=== PATIENT | male | born 1955 | race African-American/Black ===

== ENCOUNTER 2016-12-09 19:38 | Emergency (ER) | payer OTHER ==
[2016-12-09] MEDS ORDERED: IBUPROFEN 400 MG TABLET (FP) PO ONE ×2 (20:08→20:13)
[2016-12-09 20:12] VITALS: BP 127/91; PULSE 68; TEMP 97.7; BMI 29.0
--- NOTE | 2016-12-09 20:12 | PDOC ---
History of Present Illness - General History Source: Patient Exam Limitations: No Limitations - History of Present Illness Initial Comments: The patient is a 61 yo M with a PMHx significant for HTN, DM, resolved prostate CA who presents s/p mechanical fall tuesday at work. The patient states he fell backwards on while walking stairs and fell on his shoulders. The patient states he cant raise his arm above 90 degrees. The patient notes the pain is worsened by elevating his arm. The patient also endorses numbness in his R forearm. The patient denies head trauma and LOC. The patient denies pain elsewhere. The patient notes a prior hx of chronic rotator cuff injuries. The patient states he took ibuprofen for the pain with mild relief. <Kaykay Morelos - Last Filed: 12/09/16 20:35> - General History Source: Patient, Old Records Exam Limitations: No Limitations <Kirsten Gonzalez - Last Filed: 12/09/16 20:58> - General Chief Complaint: Injury Stated Complaint: RT SHOULDER PAIN Time Seen by Provider: 12/09/16 19:41 Past History <Kaykay Morelos - Last Filed: 12/09/16 20:35> - Past Medical History Cancer: Yes (PROSTATE) Diabetes: Yes HTN: Yes - Psycho/Social/Smoking Cessation Hx Anxiety: No Suicidal Ideation: No Smoking History: Current some day smoker Have you smoked in the past 12 months: Yes Number of Cigarettes Smoked Daily: 3 Information on smoking cessation initiated: Yes 'Breaking Loose' booklet given: 12/09/16 Hx Alcohol Use: No <Kirsten Gonzalez - Last Filed: 12/09/16 20:58> - Past Medical History Allergies/Adverse Reactions: Allergies Allergy/AdvReac Type Severity Reaction Status Date / Time No Known Allergies Allergy Verified 12/09/16 19:38 Home Medications: Ambulatory Orders Amlodipine Besylate 5 mg PO DAILY 12/09/16 Aspirin [Aspirin EC] 81 mg PO DAILY 12/09/16 Ibuprofen 400 mg PO ONCE 12/09/16 Insulin Glargine,Hum.rec.anlog [Lantus (nf)] 30 units SQ ASDIR 12/09/16 Metformin HCl [Metformin HCl ER] 1,000 mg PO BID 12/09/16 Review of Systems - Review of Systems Able to Perform ROS?: Yes Comments:: CONSTITUTIONAL: Absent: fever, no chills, no fatigue EYES: Absent: visual changes ENT: Absent: ear pain, no sore throat CARDIOVASCULAR: Absent: chest pain, no palpitations RESPIRATORY: Absent: cough, no SOB GI: Absent: abdominal pain, no nausea, no vomiting, no constipation, no diarrhea GENITOURINARY: Absent: dysuria, no frequency, no hematuria MUSKULOSKELETAL: +R shoulder pain Absent: back pain SKIN: Absent: rash <Kaykay Morelos - Last Filed: 12/09/16 20:35> *Physical Exam - Vital Signs Last Vital Signs Temp Pulse Resp BP Pulse Ox 97.7 F 68 18 127/91 98 12/09/16 19:38 12/09/16 19:38 12/09/16 19:38 12/09/16 19:38 12/09/16 19:38 - Physical Exam Comments: GENERAL: Well-appearing, well-nourished. No apparent distress. HEENT: Normocephalic, atraumatic. PERRL, EOM intact. CARDIOVASCULAR: Normal S1, S2. Regular rate and rhythm. PULMONARY: Clear to auscultation bilaterally. ABDOMEN: Soft, non-distended, non-tender. MUSCULOSKELETAL: Full ROM. sensory and motor function intact. Pain with external rotation of the R arm and with Abduction. Radial pulses +2. Muscular tenderness in trapezius region of R shoulder. No ecchymosis or abraisions to R shoulder. EXTREMITIES: Normal ROM in all four extremities. No gross deformities. SKIN: Warm, dry. No rash NEUROLOGICAL: No focal neurological deficits. <Kaykay Morelos - Last Filed: 12/09/16 20:35> - Vital Signs Last Vital Signs Temp Pulse Resp BP Pulse Ox 97.7 F 68 18 127/91 98 12/09/16 19:38 12/09/16 19:38 12/09/16 19:38 12/09/16 19:38 12/09/16 19:38 <Kirsten Gonzalez - Last Filed: 12/09/16 20:58> Medical Decision Making - Medical Decision Making 12/09/16 20:10 61-year-old male with hypertension, diabetes and prostate CA status post mechanical fall 2 days ago onto his right shoulder with right shoulder pain now. Differential diagnosis includes but is not limited to: Shoulder contusion, sprain, fracture. Plan: 1. Plain films 2. Ibuprofen 800 mg times one now 3. If films are negative will discharge home, NSAIDs as needed for pain and follow-up with or the as needed. 4. I will also advised the patient to return to the emergency department if his symptoms persist, worsen, or new symptoms arise. 12/09/16 20:58 Addendum: Plain films are negative by my read. Will discharge home with the above instructions. <Kirsten Gonzalez - Last Filed: 12/09/16 20:58> *DC/Admit/Observation/Transfer - Attestations Scribe Attestion: Documentation prepared by Kaykay Morelos, acting as medical equipment repair technician for Kirsten Gonzalez MD, /DO. <Kaykay Morelos - Last Filed: 12/09/16 20:35> - Discharge Dispostion Admit: No - Attestations Physician Attestion: 12/09/16 20:09 I, Dr. Kirsten Gonzalez, attest that the scribes documentation that appears above has been prepared under my direction and personally reviewed by me in its entirety. I confirmed that the note above accurately reflects all work, treatment, procedures, and medical decision-making performed by me. <Kirsten Gonzalez - Last Filed: 12/09/16 20:58> Diagnosis at time of Disposition: Right shoulder strain - Discharge Dispostion Disposition: HOME Condition at time of disposition: Stable - Referrals Referrals: Rick Matthews MD [Staff Physician] - - Patient Instructions Additional Instructions: You are being treated for a right shoulder contusion. He may take ibuprofen 600- 800 mg as needed for the pain. Please follow-up with an orthopedist if your symptoms do not resolve and return to the emergency department if your symptoms persist, worsen, or new symptoms arise.
== END 2016-12-09 21:03 | disposition home or self-care (01) ==
LOC: FER 19:38
DX: S46.911A Strain of unspecified muscle, fascia and tendon at shoulder and upper arm level, right arm, initial encounter (principal); W10.9XXA Fall (on) (from) unspecified stairs and steps, initial encounter; Y93.89 Activity, other specified; Y92.9 Unspecified place or not applicable; I10 Essential (primary) hypertension; E11.9 Type 2 diabetes mellitus without complications; Z85.46 Personal history of malignant neoplasm of prostate; F17.210 Nicotine dependence, cigarettes, uncomplicated
CPT/HCPCS: 73030-TC-RT; 99282-25